=== PATIENT | female | born 1945 | race Caucasian/White ===

== ENCOUNTER 2016-11-09 10:40 | Emergency (ER) | payer OTHER ==
[~2016-11-09] VITALS: Ht 149.8 cm; Wt 80.7 kg
[~2016-11-09 10:40] MED LIST: ACTEMRA20 MG/ML IV; AMITRIPTYLINE; AMITRIPTYLINE100 M1 PO; AMITRIPTYLINE100 MG PO; ASA; ASPIRIN81 M1 PO; ATARAX25 MG PO; BACTRIM DS 8001 TA1 PO; CYCLOBENZAPRINE5 M3 PO; DARVOCET N 1001 TAB PO; ELAVIL100 MG PO; ETODOLAC500 MG PO; FLEXERIL10 MG PO; FOLIC ACID1 MG PO; KEFLEX500 MG PO; KEPPRA500 MG PO; LATANOPROST; MEDROL DOSEPAK4 MG PO; METHOTREXATE S2.5 MG PO; METHOTREXATE2.5 M1; MUPIROCIN2% TP; NORVASC5 MG PO; OMEPRAZOLE40 MG PO; PERCOCET 325 MG1 TA2 PO; PRAVACHOL40 MG PO; PROCARDIA XL30 MG PO; ROBAXIN750 MG PO; SEPTRA DS 800 M1 TAB PO; SKELAXIN800 MG PO; TOCILIZUMAB; VICODIN 5/500 505 MG PO; VICODIN 500 MG-1 TAB PO; XALATAN 0.005%2.5 ML INTRAOC
[2016-11-09] MEDS ORDERED: [UNRECOGNIZED DRUG - OTHER] (10:49)
[2016-11-09 11:11] LABS: BASO # 0.1 10*3/uL (0.0-0.1); BASO % 0.9 % (0.0-1.0); EOS # 0.2 10*3/uL (0.0-0.4); EOS % 2.8 % (1.0-4.0); HEMATOCRIT 42.5 % (37.0-47.0); HEMOGLOBIN 14.3 g/dl (12.0-16.0); LYMPH # 1.8 10*3/uL (1.3-4.4); MEAN CORPUSCULAR HGB CONC 33.6 g/dl (33.0-37.0); MEAN PLATELET VOLUME 9.5 fl (9.6-12.3); MONO # 0.5 10*3/uL (0.1-1.0); MONO % 7.4 % (3.0-9.0); NEUT # 3.8 10*3/uL (2.3-7.9); NEUT % 60.6 % (47.0-73.0); PLATELET COUNT AUTOMATED 225 10*3/uL (130-400); RED BLOOD COUNT 4.62 10*6/uL (4.10-5.10); RED CELL DISTRI WIDTH 14.5 % (0-14.5); WHITE BLOOD COUNT 6.3 10*3/uL (4.8-10.8)
[2016-11-09 11:31] LABS: ALBUMIN 3.6 gm/dl (3.1-4.5); ALKALINE PHOSPHATASE 107 U/L (45-117); BILIRUBIN, TOTAL 0.5 mg/dl (0.2-1.0); BUN 21 mg/dl (7-24); CARBON DIOXIDE 27 mmol/L (21-32); CHLORIDE 107 mmol/L (98-107); EST GLOM FILT AFRICAN AMERICAN > 60 ml/min; GLUCOSE 107 mg/dL (65-99); POTASSIUM 4.4 mmol/L (3.5-5.1); SGOT/AST 27 IU/L (3-35); SGPT/ALT 37 U/L (12-78); SODIUM 143 mmol/L (136-145); TOTAL PROTEIN 7.2 gm/dL (6.4-8.2)
[2016-11-09] MEDS ORDERED: HYDR25T PO (11:49)
== END 2016-11-09 15:47 | disposition home or self-care (01) ==
LOC: ED 10:40
PROVIDERS: Nurse Practitioner Family
DX: I10 Essential (primary) hypertension (principal)

== ENCOUNTER 2017-07-27 15:52 | Emergency (ER) | payer MEDICARE ==
[~2017-07-27] VITALS: Wt 81.6 kg
[~2017-07-27 15:52] MED LIST changes: +HYDR25T PO; +[UNRECOGNIZED DRUG - OTHER]
[2017-07-27 16:48] LABS: BASO # 0.1 10*3/uL (0.0-0.1); BASO % 1.1 % (0.0-1.0); EOS # 0.2 10*3/uL (0.0-0.4); EOS % 3.2 % (1.0-4.0); HEMATOCRIT 38.6 % (37.0-47.0); HEMOGLOBIN 13.9 g/dl (12.0-16.0); LYMPH # 1.6 10*3/uL (1.3-4.4); LYMPH % 25.6 % (27.0-41.0); MEAN CELL VOLUME 92.3 fl (81.0-99.0); MEAN CORPUSCULAR HGB 33.3 pg (27.0-31.0); MEAN PLATELET VOLUME 8.7 fl (9.6-12.3); MONO # 0.8 10*3/uL (0.1-1.0); MONO % 11.9 % (3.0-9.0); NEUT # 3.6 10*3/uL (2.3-7.9); NEUT % 57.9 % (47.0-73.0); PLATELET COUNT AUTOMATED 259 10*3/uL (130-400); RED BLOOD COUNT 4.18 10*6/uL (4.10-5.10); RED CELL DISTRI WIDTH 13.8 % (0-14.5); WHITE BLOOD COUNT 6.3 10*3/uL (4.8-10.8)
[2017-07-27 17:08] LABS: ALBUMIN 3.6 gm/dl (3.1-4.5); ALKALINE PHOSPHATASE 96 U/L (45-117); BUN 20 mg/dl (7-24); CHLORIDE 102 mmol/L (98-107); CREATININE 0.85 mg/dL (0.55-1.02); LIPASE 153 U/L (73-393); SGOT/AST 27 IU/L (3-35); SGPT/ALT 33 U/L (12-78); SODIUM 138 mmol/L (136-145); TOTAL PROTEIN 7.8 gm/dL (6.4-8.2)
[2017-07-27 17:14] LABS: BILIRUBIN 3+ (NEGATIVE); BLOOD NEGATIVE (NEGATIVE); CLARITY CLEAR (CLEAR); COLOR YELLOW (YELLOW); GLUCOSE NEGATIVE (NEGATIVE); KETONE NEGATIVE (NEGATIVE); LEUKO ESTERASE TRACE (NEGATIVE); NITRITE NEGATIVE (NEGATIVE); PH 5.5 (5.0-9.0); SPECIFIC GRAVITY 1.015 (1.005-1.030); UROBILINOGEN 0.2 E.U./dl (0.2-1.0)
[2017-07-27 17:22] LABS: BACTERIA TRACE; EPITHELIAL CELLS TNTC; RBC 0-2 rbc/hpf (0-2)
[2017-07-27] MEDS ORDERED: NORVASC5 MG PO (17:51)
[2017-07-27] MEDS ORDERED: CYCLOBENZAPRINE5 M3 PO (19:10)
[2017-07-27] MEDS ORDERED: DELTASONE20 M1 PO (19:10)
== END 2017-07-27 19:28 | disposition home or self-care (01) ==
LOC: ED 15:52
PROVIDERS: Physician Assistant
DX: M25.512 Pain in left shoulder (principal); M54.6 Pain in thoracic spine; Z79.899 Other long term (current) drug therapy

== ENCOUNTER → 2017-08-06 | Outpatient (CLI) | payer MEDICARE ==
[~2017-08-06] MED LIST changes: +DELTASONE20 M1 PO
== END | disposition home or self-care (01) ==
LOC: RAD 13:28
DX: M47.892 Other spondylosis, cervical region (principal); M54.12 Radiculopathy, cervical region

== ENCOUNTER → 2017-11-29 | Day surgery (SDC) | payer OTHER ==
[~2017-11-29] MED LIST changes: +PREDNISONE10 MG PO
[2017-11-29 12:31] LABS: INTERNATIONAL NORM RATIO 0.9 (2.0-3.5)
== END | disposition home or self-care (01) ==
LOC: SDC 11-26 12:00 → RAD 11-26 12:00 → SDC 07:18
PROVIDERS: Orthopaedic Surgery
DX: M16.11 Unilateral primary osteoarthritis, right hip (principal)

== ENCOUNTER 2017-12-13 18:57 | Emergency (ER) | payer OTHER ==
[~2017-12-13] VITALS: Ht 149.8 cm; Wt 81.6 kg
[~2017-12-13 18:57] MED LIST changes: -PREDNISONE10 MG PO
[2017-12-13] MEDS ORDERED: PREDNISONE10 MG PO (20:19)
== END 2017-12-13 20:35 | disposition home or self-care (01) ==
LOC: ED 18:57
DX: M25.572 Pain in left ankle and joints of left foot (principal); I10 Essential (primary) hypertension; Z98.890 Other specified postprocedural states; Z98.51 Tubal ligation status; Z79.899 Other long term (current) drug therapy

== ENCOUNTER → 2018-01-05 | Outpatient (CLI) | payer OTHER ==
[~2018-01-05] MED LIST changes: +PREDNISONE10 MG PO
== END | disposition home or self-care (01) ==
LOC: ORTHO 03:28
DX: M54.9 Dorsalgia, unspecified (principal); R20.0 Anesthesia of skin

== ENCOUNTER 2018-08-05 10:31 | Emergency (ER) | payer OTHER ==
[~2018-08-05] VITALS: Ht 149.8 cm; Wt 86.2 kg
[2018-08-05] MEDS ORDERED: TYLENOL325 M1 PO (11:22)
[2018-08-05] MEDS ORDERED: TAMIFLU 75MG CA75 MG PO (11:22)
== END 2018-08-05 12:15 | disposition home or self-care (01) ==
LOC: ED 10:31
DX: J10.1 Influenza due to other identified influenza virus with other respiratory manifestations (principal); I10 Essential (primary) hypertension; M06.9 Rheumatoid arthritis, unspecified; Z89.021 Acquired absence of right finger(s); Z79.899 Other long term (current) drug therapy

== ENCOUNTER → 2021-06-23 | Outpatient (CLI) | payer OTHER ==
[~2021-06-23] MED LIST changes: +TAMIFLU 75MG CA75 MG PO; +TYLENOL325 M1 PO
== END | disposition home or self-care (01) ==
LOC: COVID19 15:05
PROVIDERS: ATTEND Internal Medicine
DX: U07.1 COVID-19 (principal)

== ENCOUNTER 2023-11-15 13:12 | Emergency (ER) | payer OTHER ==
[~2023-11-15] VITALS: Ht 149.8 cm; Wt 80.7 kg
[2023-11-15] MEDS ORDERED: Metoclopramide Hydrochloride 10 MG/2 ML AMP IV ONE (13:50)
[2023-11-15] MEDS ORDERED: ACETAMINOPHEN 500 MG TAB PO ONE (13:50)
[2023-11-15] MEDS ORDERED: SODIUM CHLORIDE 0.9% 1,000 ML IV ONE (13:50)
[2023-11-15] MEDS ORDERED: Ketorolac Tromethamine 15 MG/ML VIAL IV ONE (13:50)
[2023-11-15] MEDS ORDERED: diphenhydrAMINE hydrochloride 50 MG/ML VIAL IV ONE (13:50)
[2023-11-15 13:59] LABS: BASO % 0.9 % (0.0-1.0); EOS # 0.2 10*3/uL (0.0-0.4); EOS % 3.3 % (1.0-4.0); HEMATOCRIT 32.5 % (37.0-47.0); LYMPH # 0.7 10*3/uL (1.3-4.4); LYMPH % 15.8 % (27.0-41.0); MEAN CELL VOLUME 93.7 fl (81.0-99.0); MEAN PLATELET VOLUME 9.1 fl (9.6-12.3); MONO # 0.4 10*3/uL (0.1-1.0); MONO % 9.4 % (3.0-9.0); NEUT # 3.1 10*3/uL (2.3-7.9); NEUT % 69.7 % (47.0-73.0); PLATELET COUNT AUTOMATED 326 10*3/uL (130-400); RED BLOOD COUNT 3.47 10*6/uL (4.10-5.10); WHITE BLOOD COUNT 4.5 10*3/uL (4.8-10.8)
[2023-11-15 14:15] LABS: ALKALINE PHOSPHATASE 111 U/L (46-116); BUN 24 mg/dl (9-23); CHLORIDE 107 mmol/L (98-107); POTASSIUM 4.6 mmol/L (3.4-5.1); SGPT/ALT 11 U/L (5-49); TOTAL PROTEIN 6.8 gm/dL (6.0-8.0)
[2023-11-15] MEDS ORDERED: Ondansetron Hydrochloride 4 MG/2 ML VIAL IV ONE (14:40)
[2023-11-15] MEDS ORDERED: MORPHINE Sulfate 2 MG/ML SYR IV ONE (14:40)
[2023-11-15] MEDS ORDERED: METOCLOPRAMIDE H5 M1 PO (14:49)
== END 2023-11-15 15:27 | disposition home or self-care (01) ==
LOC: ED 13:12
PROVIDERS: Student in an Organized Health Care Education/Training Program
DX: G43.909 Migraine, unspecified, not intractable, without status migrainosus (principal); M19.90 Unspecified osteoarthritis, unspecified site; I10 Essential (primary) hypertension; K21.9 Gastro-esophageal reflux disease without esophagitis; E11.9 Type 2 diabetes mellitus without complications; E78.00 Pure hypercholesterolemia, unspecified; Z98.890 Other specified postprocedural states; Z98.51 Tubal ligation status

== ENCOUNTER 2024-04-25 07:31 | Emergency (ER) | payer OTHER ==
[~2024-04-25] VITALS: Ht 149.9 cm; Wt 71.7 kg
[~2024-04-25 07:31] MED LIST changes: +METOCLOPRAMIDE H5 M1 PO
[2024-04-25] MEDS ORDERED: MORPHINE Sulfate 2 MG/ML SYR IV ONE (07:35)
[2024-04-25] MEDS ORDERED: Ondansetron Hydrochloride 4 MG/2 ML VIAL IV ONE (07:50)
[2024-04-25] MEDS ORDERED: ETOMIDATE 20 MG/10 ML VIAL IV ONE (08:20)
== END 2024-04-25 10:17 | disposition home or self-care (01) ==
LOC: ED 07:31
DX: T84.020A Dislocation of internal right hip prosthesis, initial encounter (principal); I10 Essential (primary) hypertension; Z96.653 Presence of artificial knee joint, bilateral; Z79.899 Other long term (current) drug therapy; Z98.890 Other specified postprocedural states; Z89.021 Acquired absence of right finger(s); X50.3XXA Overexertion from repetitive movements, initial encounter; Y93.89 Activity, other specified; Y92.092 Bedroom in other non-institutional residence as the place of occurrence of the external cause; Y99.8 Other external cause status